=== PATIENT | male | born 1945 | race Caucasian/White ===

== ENCOUNTER 2021-04-02 15:50 | Emergency (ER) | payer MEDICARE, MEDICAID, SELFPAY ==
--- NOTE | ~2021-04-02 | XR_ITS ---
EXAMINATION: XR CHEST CLINICAL INFORMATION: Hyperglycemia COMPARISON: 04/16/2019 and prior TECHNIQUE: AP portable upright view of the chest was obtained. 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 No mass or adenopathy. No overt pulmonary edema. Chronic bronchial wall thickening is again noted. No lobar consolidation. No effusion or pneumothorax. There is a persistent small dense 5 mm pulmonary nodule in the lower left lung projecting over the posterior seventh rib. Limited CT scans of the neck and abdomen in 2017 revealed moderately severe emphysema and a calcified left upper lobe pulmonary nodule. Suggest nonemergent low-dose noncontrast CT scan of the chest to definitively exclude a suspicious pulmonary nodule. Nonobstructive gas pattern. XR/XR chest 1V IMPRESSION: 1. Stable small pulmonary nodule in the left lower lobe. 2. Chronic airways disease without focal pneumonia. 3. Emphysema. Suggest entry of the patient into a program of yearly low-dose lung CT screening.
[2021-04-02 15:58] VITALS: BP 179/89; PULSE 104; RESP 18; TEMP 37.1; O2SAT 95
--- NOTE | 2021-04-02 16:30 | ECG_ITS ---
Test Reason : ABDPAIN Blood Pressure : / mmHG Vent. Rate : 091 BPM Atrial Rate : 091 BPM P-R Int : 148 ms QRS Dur : 082 ms QT Int : 356 ms P-R-T Axes : 000 -31 049 degrees QTc Int : 437 ms Normal sinus rhythm Left axis deviation Abnormal ECG When compared with ECG of 16-APR-2019 18:19, ST no longer elevated in Inferior leads Heart rate has decreased Referred By: Marion Moura Electronically Signed By:SHAUN GALVIN
--- NOTE | 2021-04-02 17:05 | ED_ITS ---
HPI - Recheck/Abnormal Lab/Rx General Chief Complaint: Recheck/Abnormal Lab/Rx Stated Complaint: Hyperglycemia Time Seen by Provider: 04/02/21 16:13 Source: patient and EMS Mode of arrival: EMS History of Present Illness HPI narrative: 75-year-old male with a past medical history of diabetes, HTN, HLD, dysplasia, hepatitis, right BKA, vascular dementia, BIBA from [facility] facility reporting He had to leave they were going to kill me there. Per EMS patient has been refusing POC/insulin x a couple days, only allowed 20 units of insulin this morning. POC with EMS 540. Also reported urinary retention with 547 cc of urine in bladder with patient refusing straight cath at facility. Patient reports dysuria, otherwise offers no complaints at this time. Denies CP/SOB, abdominal pain, nausea/vomiting Related Data Allergies Allergy/AdvReac Type Severity Reaction Status Date / Time No Known Allergies Allergy Unverified 04/13/20 15:42 [No Known Allergies*] Review of Systems Review of Systems: Constitutional: No Fever, No Chills, No Fatigue, No Malaise ENT/Mouth: No Ear Pain, No Nasal Congestion, No sore throat Eyes: No Eye Pain, No Swelling, No Redness Cardiovascular: No Chest Pain, No SOB, No Edema, No Palpitations Respiratory: No Cough, No Sputum, No Wheezing, No Smoke Exposure, No Dyspnea Gastrointestinal: No Nausea, No Vomiting, No Diarrhea, No Constipation, No Abdominal pain Genitourinary: +Dysuria, No Urinary Frequency, No Hematuria, No Flank Pain, No Urinary Flow Changes, + urinary retention, + Hesitancy Musculoskeletal: No joint pain, No Myalgias, No Joint Swelling Skin: No Skin Lesions, No rash Neuro: No Weakness, No Numbness, No Paresthesias, No Headache Yes all other systems are reviewed and are negative PMFSH Past Medical History Attestation statement: The following information was validated with the patient. Medical History (Updated 04/02/21 @ 18:48 by MARYAM Calles) Below-knee amputation of left lower extremity Diabetes Dysphagia Hepatitis HTN (hypertension) Hyperlipidemia Vascular dementia Surgical History (Updated 04/02/21 @ 16:06 by Shanta Brown) Hx of right BKA Social History Social History Advance Directives: No Physical Exam Vital Signs: Vital Signs: Last Vital Signs Temp 98.8 F 04/02/21 15:58 Pulse 85 04/02/21 18:39 Resp 18 04/02/21 18:39 BP 133/70 04/02/21 18:39 Pulse Ox 97 04/02/21 18:39 Body Mass Index 0.0 Const: General: cooperative, healthy appearing and no acute distress Orientation/consciousness: oriented to person and oriented to place Limitations: no limitations HENMT: Head: Yes normal to inspection and Yes atraumatic Ears: hearing grossly normal bilaterally General nose exam: Normal external nose present Face and sinus: Yes normal facial exam Eyes: General: appearance normal, both eyes and all related structures Pupils: Equal, round and reactive pupils present EOM: EOMs intact bilaterally Neck: Neck: Yes normal visual inspection and Yes no meningeal signs Resp: Effort & Inspection: normal respiratory effort Auscultation: clear to auscultation bilaterally, no rales, no rhonchi and no wheezes Cardio: Rate: regular rate Heart sounds: S1 normal heart sound present and S2 normal heart sound present GI: Inspection: Yes normal to inspection Palpation (GI): Soft to palpation, nontender, no guarding and not rigid Skin: Rashes: no rashes Wounds: no wounds Neuro: General: oriented to person, oriented to place, tone normal, moves all extremities, no meningeal signs and no focal motor deficits Cranial nerves: Yes Equal, round and reactive pupils present Extrem: General: Yes normal to inspection Course Course Course Narrative: -mild leukocytosis of 13.1. H&H stable. VBG WNL > still low suspicion for sepsis -potassium slightly elevated to 5.2. Glucose 427 > will give 5U IV insulin, no anion gap, acetone negative XR chest 1V IMPRESSION: 1. Stable small pulmonary nodule in the left lower lobe. 2. Chronic airways disease without focal pneumonia. 3. Emphysema. Suggest entry of the patient into a program of yearly low-dose lung CT screening. -1807--bladder scan with 696cc in the ED >> patient refusing catheter placement -1899--ED care transferred to [place] in a pending UA, repeat POC, and transfer back to LT MDM - Recheck/Abnormal Lab/Rx MDM Narrative Medical decision making narrative: 75-year-old male with a past medical history of diabetes, HTN, HLD, dysplasia, hepatitis, right BKA, vascular dementia, BIBA from LT facility reporting He had to leave they were going to kill me there. Per EMS patient has been refusing POC/insulin x a couple days, only allowed 20 units of insulin this morning. POC with EMS 540. Also reported urinary retention. On exam tachycardic likely from hyperglycemia/dehydration, NAD/nontoxic appearing, abdomen soft/nontender, lungs CTA. Concern for hyperglycemia vs DKA. Rule out metabolic abnormalities, Hyperglycemia likely from patient refusing care rather than infectious source. Concern for urinary retention, however patient urinated upon ED arrival. Will check bladder scan. Rule out UTI Low concern for severe sepsis Plan: EKG, labs, UA, CXR, reassess Medical Records Attestation: I reviewed the patient's medical records. Lab Data Attestation: I reviewed the patient's lab results. Result diagrams: 04/02/21 17:11 04/02/21 17:11 Labs: Lab Results 04/02/21 04/02/21 04/02/21 Range/Units 17:11 17:11 17:11 WBC 13.1 H (4.8-10.8) X10*3/uL RBC 4.60 (4.60-5.80) X10*6/uL Hgb 13.7 L (14.0-18.0) g/dl Hct 39.9 L (42-52) % MCV 86.7 (80-98) fL MCH 29.8 (27.0-33.0) pg MCHC 34.3 (31.0-36.0) g/dl RDW 12.2 (11.0-16.0) % Plt Count 336 (160-400) X10*3/uL MPV 9.0 L (9.4-12.4) fL Immature Gran % (Auto) 0.8 H (0.0-0.4) % Neut % (Auto) 75.4 H (45-73) % Lymph % (Auto) 15.6 L (20-40) % Dolores % (Auto) 7.6 (2-11) % Eos % (Auto) 0.2 (0-4) % Baso % (Auto) 0.4 (0-2) % Lymph # (Auto) 2.1 (1.2-4.9) X10*3/uL Dolores # (Auto) 1.0 (0.1-1.2) X10*3/uL Eos # (Auto) 0.0 (0.0-0.4) X10*3/uL Baso # (Auto) 0.1 (0.0-0.2) X10*3/uL Abs Immat Gran (auto) 0.10 H (0.00-0.03) X10*3/uL Absolute Neuts (auto) 9.9 H (2.0-8.3) X10*3/uL Absolute Nucleated RBC 0.000 (0.0-0.012) X10*3/uL Nucleated RBC % (auto) 0.0 (0.0-0.2) /100WBC VBG pH (7.32-7.43) VBG pCO2 mmHg VBG pO2 mmHg VBG HCO3 (22-26) mmol/L VBG O2 Saturation % VBG Base Excess mmol/L Sodium 139 (135-145) mmol/L Potassium 5.2 H (3.3-5.1) mmol/L Chloride 103 (96-108) mmol/L Carbon Dioxide 23 (22-29) mmol/L Anion Gap 18 (12-20) BUN 15 (9-16) mg/dL Creatinine 0.83 (0.5-1.4) mg/dL Estim Creat Clear Calc TNP Estimated GFR > 60 Random Glucose 427 H* (60-115) mg/dL Calcium 9.6 (8.4-10.2) mg/dL Magnesium 2.0 (1.6-2.6) mg/dL Total Bilirubin 0.5 (0.0-1.0) mg/dL Direct Bilirubin 0.2 (0.0-0.5) mg/dL AST 33 (5-37) U/L ALT 45 H (0-40) U/L Alkaline Phosphatase 100 (39-117) U/L Total Protein 7.3 (6.5-8.0) g/dL Albumin 3.7 (3.5-5.0) g/dL Acetone, Qual Negative (Negative) COVID-19 (GONZALEZ) Negative (Negative) COVID-19 Clin Com See Note 04/02/21 Range/Units 17:15 WBC (4.8-10.8) X10*3/uL RBC (4.60-5.80) X10*6/uL Hgb (14.0-18.0) g/dl Hct (42-52) % MCV (80-98) fL MCH (27.0-33.0) pg MCHC (31.0-36.0) g/dl RDW (11.0-16.0) % Plt Count (160-400) X10*3/uL MPV (9.4-12.4) fL Immature Gran % (Auto) (0.0-0.4) % Neut % (Auto) (45-73) % Lymph % (Auto) (20-40) % Dolores % (Auto) (2-11) % Eos % (Auto) (0-4) % Baso % (Auto) (0-2) % Lymph # (Auto) (1.2-4.9) X10*3/uL Dolores # (Auto) (0.1-1.2) X10*3/uL Eos # (Auto) (0.0-0.4) X10*3/uL Baso # (Auto) (0.0-0.2) X10*3/uL Abs Immat Gran (auto) (0.00-0.03) X10*3/uL Absolute Neuts (auto) (2.0-8.3) X10*3/uL Absolute Nucleated RBC (0.0-0.012) X10*3/uL Nucleated RBC % (auto) (0.0-0.2) /100WBC VBG pH 7.41 (7.32-7.43) VBG pCO2 37 mmHg VBG pO2 37 mmHg VBG HCO3 23 (22-26) mmol/L VBG O2 Saturation 59.0 % VBG Base Excess -0.3 mmol/L Sodium (135-145) mmol/L Potassium (3.3-5.1) mmol/L Chloride (96-108) mmol/L Carbon Dioxide (22-29) mmol/L Anion Gap (12-20) BUN (9-16) mg/dL Creatinine (0.5-1.4) mg/dL Estim Creat Clear Calc Estimated GFR Random Glucose (60-115) mg/dL Calcium (8.4-10.2) mg/dL Magnesium (1.6-2.6) mg/dL Total Bilirubin (0.0-1.0) mg/dL Direct Bilirubin (0.0-0.5) mg/dL AST (5-37) U/L ALT (0-40) U/L Alkaline Phosphatase (39-117) U/L Total Protein (6.5-8.0) g/dL Albumin (3.5-5.0) g/dL Acetone, Qual (Negative) COVID-19 (GONZALEZ) (Negative) COVID-19 Clin Com Discharge Plan Discharge Clinical Impression: Hyperglycemia, Acute urinary retention
[2021-04-02] MEDS: 0.9 % Sodium Chloride 1,000 ML 999 ML IVCONT (17:14)
[2021-04-02 17:16] LABS: MANUAL DIFF FLAG NO
[2021-04-02 17:20] LABS: VBG Base Excess -0.3 mmol/L; VBG HCO3 23 mmol/L (22-26); VBG pCO2 37 mmHg; VBG pH 7.41 (7.32-7.43); VBG pO2 37 mmHg
[2021-04-02 17:22] LABS: Venous Blood Gas Refer to POC result
[2021-04-02 17:26] LABS: Basophils Absolute Auto 0.1 X10*3/uL (0.0-0.2); Basophils Percent Auto 0.4 % (0-2); Eosinophils Percent Auto 0.2 % (0-4); Hematocrit 39.9 % (42-52); Hemoglobin 13.7 g/dl (14.0-18.0); Imm Gran Pct Auto 0.8 % (0.0-0.4); Lymphocytes Absolute Auto 2.1 X10*3/uL (1.2-4.9); Lymphocytes Percent Auto 15.6 % (20-40); Mean Corpuscular HGB Conc 34.3 g/dl (31.0-36.0); Mean Corpuscular Hemoglobin 29.8 pg (27.0-33.0); Mean Corpuscular Volume 86.7 fL (80-98); Monocytes Percent Auto 7.6 % (2-11); Neutrophils Absolute Auto 9.9 X10*3/uL (2.0-8.3); Neutrophils Percent Auto 75.4 % (45-73); Platelet Count 336 X10*3/uL (160-400); Red Cell Distribution Width 12.2 % (11.0-16.0); White Blood Count 13.1 X10*3/uL (4.8-10.8)
[2021-04-02 17:35] LABS: Acetone, serum QL Negative (Negative)
[2021-04-02 17:37] LABS: COVID-19 Test Negative (Negative)
[2021-04-02 17:42] LABS: Alanine Aminotransferase 45 U/L (0-40); Albumin Level 3.7 g/dL (3.5-5.0); Alkaline Phosphatase 100 U/L (39-117); Anion Gap 18 (12-20); Aspartate Amino Transferase 33 U/L (5-37); Bilirubin Direct 0.2 mg/dL (0.0-0.5); Bilirubin Total 0.5 mg/dL (0.0-1.0); Blood Urea Nitrogen 15 mg/dL (9-16); Calcium 9.6 mg/dL (8.4-10.2); Carbon Dioxide 23 mmol/L (22-29); Chloride 103 mmol/L (96-108); Estimated Glomerular Filt Rate > 60; Glucose Random 427 mg/dL (60-115); Potassium 5.2 mmol/L (3.3-5.1); Sodium 139 mmol/L (135-145); Total Protein 7.3 g/dL (6.5-8.0)
--- NOTE | 2021-04-02 18:16 | PC.NURSE ---
bladder scan 696ml. proveider aware. attempting to void now
--- NOTE | 2021-04-02 18:30 | PC.NURSE ---
voided 50ml. science interpreter and listening device used and pt refuses catheter, denies pain
[2021-04-02] MEDS: Insulin Regular, Human 100 UNIT/ML 3 ML VIAL IVPUSH (18:35)
[2021-04-02 18:39] VITALS: BP 133/70; PULSE 85; RESP 18; O2SAT 97
[2021-04-02 19:16] LABS: Glucose Urine UA >=1000 MG/DL (NEG); Leukocyte Esterase Urine TRACE (NEG); Nitrite Urine NEG (NEG); PH 5.5 (5.0-8.0); UACC Culture Trigger YES; Urine Blood TRACE (NEG); Urine Ketones 40 MG/DL (NEG); Urine Protein TRACE MG/DL (NEG-TRACE)
[2021-04-02 19:21] LABS: Appearance Urine HAZY; Color Urine STRAW
[2021-04-02 19:32] LABS: Bacteria Urine 2+ /LPF; RBC Urine 0-2 /HPF (0); Squamous Epithelial Cell Urine 1+ /LPF; WBC Urine 30-49 /HPF (0-4)
[2021-04-02 20:09] VITALS: BP 164/80; PULSE 90; RESP 16; TEMP 36.7; O2SAT 99
[2021-04-02 21:21] LABS: Glucose, Whole Blood 250 mg/dL (60-115)
== END 2021-04-03 00:28 | disposition skilled nursing facility (03) ==
PROVIDERS: Physician Assistant; Emergency Provider Internal Medicine
DX: E11.65 Type 2 diabetes mellitus with hyperglycemia (principal); R33.9 Retention of urine, unspecified; Z20.822 Contact with and (suspected) exposure to COVID-19; I10 Essential (primary) hypertension; E78.5 Hyperlipidemia, unspecified; F01.50 Vascular dementia, unspecified severity, without behavioral disturbance, psychotic disturbance, mood disturbance, and anxiety; Z89.512 Acquired absence of left leg below knee; Z91.14 Patient's other noncompliance with medication regimen
CPT/HCPCS: 36415; 51798; 71045; 80048; 80076; 81001; 82009; 82803; 82947; 83735; 85025; 87086; 87635; 93005; 96361; 96365; 96375; 99284